=== PATIENT | male | born 1960 | race Caucasian/White ===

== ENCOUNTER → 2020-12-19 15:13 | Outpatient (CLI) | payer OTHER, SELFPAY ==
[2020-12-19 16:03] LABS: Add Manual Diff / Slide Review NO; Basophils Absolute Auto 0 /uL (0-100); Basophils Percent Auto 0.3 % (0-2); Eosinophils Absolute Auto 100 /uL (0-450); Eosinophils Percent Auto 0.7 % (2-4); Hematocrit 42.3 % (41-53); Hemoglobin 14.5 g/dL (13.5-17.5); Lymphocytes Absolute Auto 1200 /uL (1100-4500); Lymphocytes Percent Auto 17.2 % (25-40); Mean Corpuscular HGB Conc 34.2 % (30-36); Mean Corpuscular Hemoglobin 30.9 PG (26-34); Mean Corpuscular Volume 90.6 fL (80-100); Monocytes Absolute Auto 600 /uL (0-900); Monocytes Percent Auto 8.7 % (3-14); Neutrophils Absolute Auto 5000 /uL (1500-7000); Neutrophils Percent Auto 73.1 % (50-75); Platelet Count 223 X10^3/uL (150-400); Red Blood Cell Count 4.67 X10^6/uL (4.5-5.9); Red Cell Distribution Width 13.2 % (11.6-14.8); White Blood Cell Count 6.8 X10^3/uL (4.5-11.0)
[2020-12-19 16:32] LABS: Hemoglobin A1C% w Est Avg Glu 5.4 % (4.0-6.0)
[2020-12-19 16:34] LABS: Alanine Aminotransferase 21 IU/L (<50); Albumin 4.5 g/dL (3.5-5.0); Albumin Globulin Ratio 1.4 (1.0-2.8); Alkaline Phosphatase 69 U/L (38-126); Aspartate Aminotransferase 26 IU/L (17-59); BUN Creatinine Ratio 13.5 (6-22); Bilirubin Total 0.9 mg/dL (0.2-1.3); Blood Urea Nitrogen 13 mg/dL (9-20); Calcium 9.7 mg/dL (8.4-10.2); Carbon Dioxide 29 mmol/L (22-32); Chloride 97 mmol/L (98-107); Cholesterol 170 mg/dL (140-199); Estimated Glomerular Filt Rate > 60.0 mL/min (>60); Globulin 3.3 g/dL (1.7-4.1); Glucose 102 mg/dL (80-110); HDL Cholesterol 56 mg/dL (40-60); HEMOLYSIS < 15 (0-50); LDL Cholesterol Calculated 97 mg/dL (<100); Potassium 4.1 mmol/L (3.4-5.1); Sodium 135 mmol/L (137-145); Total Protein 7.8 g/dL (6.3-8.2); Triglycerides 87 mg/dL (35-150)
[2020-12-19 17:04] LABS: Prostate Specific Antigen 1.04 ng/mL (0.10-4.00)
== END ==
PROVIDERS: PCP Family Medicine; Referring Provider Family Medicine; Visit Provider Family Medicine
DX: E78.5 Hyperlipidemia, unspecified (principal); I10 Essential (primary) hypertension; N40.0 Benign prostatic hyperplasia without lower urinary tract symptoms; R73.03 Prediabetes
CPT/HCPCS: 36415; 80053; 80061; 83036; 84153; 85025

== ENCOUNTER → 2021-11-16 10:28 | Outpatient (CLI) | payer OTHER, SELFPAY ==
--- NOTE | 2021-11-16 10:33 | DI.RAD.S_ITS ---
PROCEDURE: XR HIP W PEL IF DONE RT 2V INDICATIONS: Persistent and progressive right hip pain TECHNIQUE: AP pelvis with lateral view(s) of the right hip(s). COMPARISON: None. FINDINGS: Bones: No fractures or dislocations. Pelvic ring appears intact. No suspicious bony lesions. Mild to moderate bilateral degenerative hip joint space narrowing. No erosions. Soft tissues: The visualized bowel gas pattern is normal. No suspicious soft tissue calcifications. IMPRESSION: [id number] bilateral hip osteoarthritis. Dictated by: Josie Patrick M.D. on 11/16/2021 at 13:57 Approved by: Josie Patrick M.D. on 11/16/2021 at 13:57
[2021-11-16 11:24] LABS: Add Manual Diff / Slide Review NO; Basophils Absolute Auto 0 /uL (0-100); Basophils Percent Auto 0.5 % (0-2); Eosinophils Absolute Auto 100 /uL (0-450); Eosinophils Percent Auto 1.5 % (2-4); Hemoglobin 14.5 g/dL (13.5-17.5); Lymphocytes Absolute Auto 1400 /uL (1100-4500); Lymphocytes Percent Auto 22.6 % (25-40); Mean Corpuscular HGB Conc 34.6 % (30-36); Mean Corpuscular Hemoglobin 30.9 PG (26-34); Mean Corpuscular Volume 89.3 fL (80-100); Monocytes Absolute Auto 600 /uL (0-900); Monocytes Percent Auto 9.9 % (3-14); Neutrophils Absolute Auto 3900 /uL (1500-7000); Neutrophils Percent Auto 65.5 % (50-75); Platelet Count 211 X10^3/uL (150-400); Red Cell Distribution Width 13.6 % (11.6-14.8)
[2021-11-16 11:32] LABS: Hemoglobin A1C% w Est Avg Glu 5.4 % (4.0-6.0)
[2021-11-16 13:03] LABS: Alanine Aminotransferase 20 IU/L (<50); Albumin 4.4 g/dL (3.5-5.0); Albumin Globulin Ratio 1.5 (1.0-2.8); Alkaline Phosphatase 59 U/L (38-126); Aspartate Aminotransferase 25 IU/L (17-59); BUN Creatinine Ratio 17.7 (6-22); Bilirubin Total 0.6 mg/dL (0.2-1.3); Blood Urea Nitrogen 17 mg/dL (9-20); Calcium 9.2 mg/dL (8.4-10.2); Carbon Dioxide 31 mmol/L (22-32); Chloride 99 mmol/L (98-107); Cholesterol 171 mg/dL (140-199); Estimated Glomerular Filt Rate > 60 mL/min (>60); Globulin 2.9 g/dL (1.7-4.1); Glucose 95 mg/dL (80-110); HDL Cholesterol 69 mg/dL (40-60); HEMOLYSIS < 15 (0-50); LDL Cholesterol Calculated 89 mg/dL (<100); Sodium 135 mmol/L (137-145); Total Protein 7.3 g/dL (6.3-8.2); Triglycerides 63 mg/dL (35-150)
[2021-11-16 13:27] LABS: Prostate Specific Antigen 1.49 ng/mL (0.10-4.00)
== END ==
PROVIDERS: PCP Family Medicine; Referring Provider Family Medicine; Visit Provider Family Medicine
DX: E78.2 Mixed hyperlipidemia (principal); I10 Essential (primary) hypertension; M16.11 Unilateral primary osteoarthritis, right hip; N13.8 Other obstructive and reflux uropathy; N40.1 Benign prostatic hyperplasia with lower urinary tract symptoms; R73.03 Prediabetes; Z12.5 Encounter for screening for malignant neoplasm of prostate
CPT/HCPCS: 36415; 73502; 80053; 80061; 83036; 84153; 85025

== ENCOUNTER → 2022-06-10 13:23 | Outpatient (CLI) | payer OTHER, SELFPAY ==
--- NOTE | 2022-07-02 07:53 | PM.CARDMON.1 ---
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 & Results Date Patient Seen: 06/10/22 Requesting provider: Elkin Fox Indication: Palpitations Duration of monitoring (days): 7 Diary information: There were 12 patient triggered events variably associated with (within 45 seconds) sinus rhythm, PVCs, and SVT Data: Minimum heart rate identified was 44 beats per minute at 04:36 on 06/13/2022 Maximum sinus heart rate was 134 beats per minute at 09:52 on 06/17/2022 Maximum overall heart rate was 167 beats per minute at 12:11 on 06/16/2022 during a run of SVT Less than 1% of identified beats were ventricular or supraventricular ectopic in origin, which would classify them as rare. There were 6 runs of SVT with the fastest being a 12 beat run as above a rate of 167 beats per minute which was also the longest run and also a patient triggered event There were no pauses or episodes of atrial fibrillation identified on this study Impression: 6+ day monitor tech demonstrating rare ectopy as above as well as rare brief runs of SVT. It is possible patient's sense of palpitations is due to the rare brief runs of SVT as above Clinical correlation suggested
== END ==
PROVIDERS: PCP Family Medicine; Referring Provider Family Medicine; Visit Provider Family Medicine
DX: R00.2 Palpitations (principal)
CPT/HCPCS: 93242; 93244

== ENCOUNTER → 2022-06-19 09:54 | Outpatient (CLI) | payer OTHER, SELFPAY ==
[2022-06-19 11:04] LABS: COVID19 -Nasal RAPID Negative (Negative)
== END ==
PROVIDERS: Radiology Diagnostic Radiology; PCP Family Medicine; Referring Provider Family Medicine; Visit Provider Family Medicine
DX: Z20.822 Contact with and (suspected) exposure to COVID-19 (principal)
CPT/HCPCS: 87635; C9803

== ENCOUNTER → 2022-06-20 07:59 | Outpatient (CLI) | payer OTHER, SELFPAY ==
--- NOTE | 2022-06-20 19:30 | DI.NM.S_ITS ---
DATE OF SERVICE: 06/20/2022 PROCEDURE PERFORMED: Exercise treadmill stress test without imaging. ORDERING PROVIDER: Dr. Elkin Fox. INDICATIONS: The patient is a 62-year-old male with palpitations, hypertension, and hyperlipidemia. FINDINGS: 1. The patient was able to exercise for 9 minutes, 1 second on a standard [place] protocol, suggesting good exercise capacity with an PABLO of -11%, achieving 9.7 METs. 2. He had a normal heart rate and blood pressure response to exercise, achieving a maximum heart rate of 140 BPM (90% of his predicted maximum). 3. He had no chest discomfort or other anginal symptoms. 4. His resting ECG shows sinus rhythm with normal ST segments. There are no significant ST-segment shifts or arrhythmias with exercise stress. IMPRESSION: 1. Normal exercise treadmill stress test for ischemia. 2. Good exercise capacity without angina or arrhythmias. Axel Galindo - Stefan/john doc#: [id number]/job#: [id number] dd: 06/20/2022 17:33:00 dt: 06/20/2022 18:44:00 DICTATING /COPIES TO: Sidney Franks MD COPIES MNE: WILLIAM;
== END ==
PROVIDERS: PCP Family Medicine; Referring Provider Family Medicine; Visit Provider Family Medicine
DX: R00.2 Palpitations (principal); I10 Essential (primary) hypertension; E78.5 Hyperlipidemia, unspecified
CPT/HCPCS: 93017

== ENCOUNTER → 2022-10-17 12:10 | Outpatient (CLI) | payer OTHER, SELFPAY ==
--- NOTE | 2022-10-17 12:12 | DI.ECHO.S_ITS ---
[facility] +---------+ [facility] +---------+ : : [address] : : : [place], [place] : : : : [id number] : : : : Phone: [phone]+ Echocardiogram Report + + :Name: MEET PERALES Study Date: 10/17/2022 Height: 70 in : :[facility] ReadingLocation: Weight: 225 lb : : Gender: Male BSA: 2.2 m2 : :: 1960 Age: 62 yrs BP: 136/64 mmHg: :Reason For Study: SUPRAVENTRICULAR TACHYCARDIA HR: 68 : :Ordering Physician: TONI, : :CAROLYN Performed By: JONY CHACKO : :Referring: CAROLYN OCONNOR : + + Interpretation Summary 1) Normal left ventricular thickness, size, wall motion, and systolic function (EF 55-60%). 2) Normal right ventricular size and function. 3) No significant valvular abnormalities. 4) No prior Echo available for comparison. Procedure: A two-dimensional transthoracic echocardiogram with color flow and Doppler was performed. The study quality was technically adequate. There is no prior echocardiogram noted for this patient. The patient was in normal sinus rhythm during the exam. Left Ventricle: The left ventricle is normal in size and wall thickness. Left ventricular systolic function is normal. The ejection fraction is estimated to be 55-60%. Left ventricular wall motion is normal. Diastolic parameters suggest a relaxation abnormality of the left ventricle, consistent with probable normal filling pressures. Right Ventricle: The right ventricle is normal size. The right ventricular systolic function is normal. Atria: The left atrial size is normal. The right atrium is mild to moderately dilated. There is no Doppler evidence for an interatrial shunt. Mitral Valve: The mitral valve is normal in structure and function. There is trace mitral regurgitation. Aortic Valve: The aortic valve is trileaflet. The aortic valve opens well. There is no aortic valve stenosis. No aortic regurgitation is present. Tricuspid Valve: The tricuspid valve is normal in structure and function. There is mild tricuspid regurgitation. The right ventricular systolic pressure is estimated to be at least 25 mmHg based on an estimated right atrial pressure of 3 mm Hg. Pulmonic Valve: The pulmonic valve leaflets are thin and pliable; valve motion is normal. There is mild pulmonic regurgitation. Great Vessels: The aortic root is normal size. The ascending aorta is normal in size. The IVC is of normal diameter and collapses greater than 50% with a sniff. This suggests a low right atrial pressure of 3 mm Hg. Pericardium/ Pleura There is no pericardial effusion. There is no pleural effusion. MMode/2D Measurements & Calculations LVIDd: 5.2 cm LVOT diam: 2.2 cm LVIDs: 3.7 cm Ao root diam: 3.3 cm FS: 30.2 % asc Aorta Diam: 3.5 cm IVSd: 1.1 cm LVPWd: 1.3 cm LV candelaria. diameter/BSA (cm/m^2): 2.4 LV sys. diameter/BSA (cm/m^2): 1.7 LA A2 area: 19.7 cm2 RA long axis: 5.4 cm LA A4 area: 20.5 cm2 RA area: 15.0 cm2 LA length (vol): 5.4 cm RA vol: 35.3 ml LA vol: 62.8 ml RA : 16.1 ml/m2 LA vol index: 28.6 ml/m2 IVC diam: 1.6 cm TAPSE: 2.4 cm Doppler Measurements & Calculations Ao V2 max: 156.0 cm/sec LVOT Max Teodoro: 119.4 cm/sec Ao V2 mean: 111.8 cm/sec LV V1 max P.7 mmHg Ao max P.7 mmHg LV V1 VTI: 25.1 cm Ao mean P.3 mmHg NEENA(I,D): 2.8 cm2 Ao V2 VTI: 34.0 cm NEENA(V,D): 3.0 cm2 sev ratio: 0.74 NEENA indexed to BSA (cm^2/m^2): 1.3 MV E max teodoro: 68.2 cm/sec TR max teodoro: 236.2 cm/sec MV A max teodoro: 75.5 cm/sec TR max P.3 mmHg MV E/A: 0.90 PA V2 max: 144.2 cm/sec Med Peak E' Teodoro: 5.3 cm/sec PA V2 mean: 99.5 cm/sec E/E' med: 12.8 PA mean P.4 mmHg Lat Peak E' Teodoro: 7.9 cm/sec PA pr(Accel): 12.2 mmHg E/E' lat: 8.6 E/e' average: 10.7 MV dec time: 0.26 sec SV(LVOT): 96.9 ml Reading Physician:05:03 PM
== END ==
PROVIDERS: PCP Family Medicine; Referring Provider Internal Medicine Cardiovascular Disease; Visit Provider Internal Medicine Cardiovascular Disease
DX: I37.1 Nonrheumatic pulmonary valve insufficiency (principal); I07.1 Rheumatic tricuspid insufficiency; I47.1 Supraventricular tachycardia
CPT/HCPCS: 93306

== ENCOUNTER → 2023-07-29 13:06 | Outpatient (CLI) | payer MEDICARE, OTHER, SELFPAY ==
[2023-07-29 15:37] LABS: Influenza A - CEPHEID Flu A POSITIVE (NEGATIVE); Influenza B - CEPHEID Flu B NEGATIVE (NEGATIVE); Respiratory Syncytial Virus Negative (Negative)
[2023-07-29 15:39] LABS: COVID-19 CEPHEID 4-PLEX PCR Negative (Negative)
== END ==
PROVIDERS: PCP Family Medicine; Visit Provider Physician Assistant
DX: R05.1 Acute cough (principal); J06.9 Acute upper respiratory infection, unspecified
CPT/HCPCS: 0241U

== ENCOUNTER → 2023-07-29 13:18 | Outpatient (CLI) | payer MEDICARE, OTHER, SELFPAY ==
[2023-07-29 14:28] LABS: Hemoglobin A1C% w Est Avg Glu 5.3 % (4.0-6.0)
[2023-07-29 14:50] LABS: Alanine Aminotransferase 17 IU/L (<50); Albumin 4.3 g/dL (3.5-5.0); Albumin Globulin Ratio 1.4 (1.0-2.8); Alkaline Phosphatase 61 U/L (38-126); Aspartate Aminotransferase 23 IU/L (17-59); BUN Creatinine Ratio 16.8 (6-22); Bilirubin Total 0.9 mg/dL (0.2-1.3); Blood Urea Nitrogen 16 mg/dL (9-20); Calcium 9.2 mg/dL (8.4-10.2); Carbon Dioxide 29 mmol/L (22-32); Chloride 94 mmol/L (98-107); Estimated Glomerular Filt Rate > 60 mL/min (>60); Globulin 3.1 g/dL (1.7-4.1); Glucose 96 mg/dL (80-110); HEMOLYSIS < 15 (0-50); Potassium 4.3 mmol/L (3.4-5.1); Sodium 133 mmol/L (137-145); Total Protein 7.4 g/dL (6.3-8.2)
[2023-07-29 15:15] LABS: Prostate Specific Antigen Scrn 1.39 ng/mL (0.1-4.0)
== END ==
PROVIDERS: PCP Family Medicine; Referring Provider Physician Assistant; Visit Provider Physician Assistant
DX: R73.03 Prediabetes (principal); Z12.5 Encounter for screening for malignant neoplasm of prostate; J06.9 Acute upper respiratory infection, unspecified; R05.1 Acute cough
CPT/HCPCS: 0241U; 36415; 80053; 83036; G0103

== ENCOUNTER → 2023-11-18 16:02 | Outpatient (CLI) | payer MEDICARE, OTHER, SELFPAY ==
--- NOTE | 2023-11-18 17:07 | DI.RAD.S_ITS ---
PROCEDURE: XR THORACIC SPINE 3V INDICATIONS: pain right side TECHNIQUE: 3 views of the thoracic spine were acquired. COMPARISON: None. FINDINGS: Bones: No fractures or dislocations. No suspicious bony lesions. 12 pairs of ribs are noted, and appear intact where visualized. There is multilevel intervertebral disc height loss with degenerative endplate changes and marginal spurring. Soft tissues: No paravertebral stripe thickening. IMPRESSION: Multilevel degenerative changes of the thoracic spine. No vertebral body compression deformities. Dictated by: Stew Núñez M.D. on 11/19/2023 at 8:44 Approved by: Stew Núñez M.D. on 11/19/2023 at 8:44
[2023-11-18 17:14] LABS: Appearance Urine UA CLEAR; Bilirubin Urine UA NEGATIVE (NEGATIVE); Color Urine UA YELLOW; Glucose Urine UA NEGATIVE (Negative); Ketones Urine UA NEGATIVE (NEGATIVE); Leukocyte Esterase Urine UA NEGATIVE (NEGATIVE); Nitrite Urine UA NEGATIVE (Negative); Occult Blood Urine UA NEGATIVE (Negative); Protein Urine UA NEGATIVE (Negative); Specific Gravity Urine UA 1.015 (1.000-1.035)
[2023-11-18 17:23] LABS: Bacteria Urine None Seen; Mucus Urine 1+ (Negative); RBC Urine None Seen (0-5/HPF); Squamous Epithelial Cell Urine None Seen (0-5/HPF); Urine Volume 10mL (spun); WBC Urine None Seen (0-5/HPF)
[2023-11-18 17:25] LABS: Culture Indicated Urine Cult Not Indicated
[2023-11-18 17:55] LABS: Alanine Aminotransferase 18 IU/L (<50); Albumin 4.6 g/dL (3.5-5.0); Albumin Globulin Ratio 1.5 (1.0-2.8); Alkaline Phosphatase 61 U/L (38-126); Aspartate Aminotransferase 24 IU/L (17-59); BUN Creatinine Ratio 22.7 (6-22); Bilirubin Total 0.7 mg/dL (0.2-1.3); Blood Urea Nitrogen 20 mg/dL (9-20); Calcium 9.1 mg/dL (8.4-10.2); Carbon Dioxide 28 mmol/L (22-32); Chloride 102 mmol/L (98-107); Estimated Glomerular Filt Rate > 60 mL/min (>60); Glucose 99 mg/dL (80-110); HEMOLYSIS < 15 (0-50); Potassium 3.9 mmol/L (3.4-5.1); Sodium 136 mmol/L (137-145); Total Protein 7.6 g/dL (6.3-8.2)
== END ==
PROVIDERS: PCP Family Medicine; Referring Provider Physician Assistant; Visit Provider Physician Assistant
DX: M54.9 Dorsalgia, unspecified (principal)
CPT/HCPCS: 36415; 72072; 80053; 81001

== ENCOUNTER → 2025-03-17 10:56 | Outpatient (CLI) | payer MEDICARE, OTHER, SELFPAY ==
[2025-03-17 12:10] LABS: Alanine Aminotransferase 19 IU/L (<50); Albumin 4.2 g/dL (3.5-5.0); Albumin Globulin Ratio 1.6 (1.0-2.8); Alkaline Phosphatase 53 U/L (38-126); Blood Urea Nitrogen 15 mg/dL (9-20); Calcium 9.0 mg/dL (8.4-10.2); Carbon Dioxide 26 mmol/L (22-32); Chloride 98 mmol/L (98-107); Cholesterol 163 mg/dL (140-199); Estimated Glomerular Filt Rate > 60 mL/min (>60); Globulin 2.7 g/dL (1.7-4.1); Glucose 88 mg/dL (70-99); HDL Cholesterol 79 mg/dL (40-60); HEMOLYSIS < 15 (0-50); Potassium 4.2 mmol/L (3.4-5.1); Sodium 132 mmol/L (137-145); Total Protein 6.9 g/dL (6.3-8.2); Triglycerides 45 mg/dL (35-150)
[2025-03-17 12:43] LABS: TSH w/ Reflex to FT4 1.40 uIU/mL (0.47-4.68)
[2025-03-17 14:39] LABS: Hemoglobin A1C% w Est Avg Glu 5.2 % (4.0-6.0)
== END ==
PROVIDERS: PCP Family Medicine; Referring Provider Family Medicine; Visit Provider Family Medicine
DX: R73.03 Prediabetes (principal); E78.2 Mixed hyperlipidemia; Z12.5 Encounter for screening for malignant neoplasm of prostate; I10 Essential (primary) hypertension
CPT/HCPCS: 36415; 80053; 80061; 83036; 84443; G0103